=== PATIENT | male | born 1955 | race Caucasian/White ===

== ENCOUNTER 2020-02-19 08:57 | Emergency (ER) | payer OTHER ==
[2020-02-19 09:31] LABS: BASOPHIL 0.3 % (0-2); EOSINOPHIL 0.1 % (0-5); HCT 42.1 % (42.0-52.0); HGB 14.2 g/dl (13.2-18.0); LYMPHOCYTE 12.6 % (15-48); MCHC 33.7 g/dL (32.0-36.0); MCV 91.9 fL (78.0-100.0); MONOCYTE 4.7 % (0-12); NEUTROPHIL 79.9 % (41-80); NRBC 0; PLT 255 K/uL (150-400); RBC 4.58 M/uL (4.70-6.00); RDW 12.9 % (11.5-14.0); WBC 7.2 K/uL (4.0-10.5)
[2020-02-19 09:43] LABS: INR 1.04 (0.9-1.2); PROTHROMBIN TIME 12.9 SECONDS (11.4-13.6); PTT 25.9 SECONDS (22.2-34.7)
[2020-02-19 09:53] LABS: ALBUMIN 2.6 g/dL (3.4-5.0); ALKALINE PHOSHATASE 83 U/L (46-116); ALT 63 U/L (16-63); AST 76 U/L (15-37); BILIRUBIN - TOTAL 0.5 mg/dL (0.2-1.0); BUN 27 mg/dL (7-18); BUN/CREAT RATIO (CALC) 17.3 RATIO; C-REACTIVE PROTEIN >18.00 mg/dL (<=0.90); CHLORIDE 102 mmol/L (98-107); CO2 (BICARBONATE) 25 mmol/L (21-32); CREATININE 1.56 mg/dL (0.67-1.17); GLOBULIN (CALCULATION) 4.5 g/dL; GLUCOSE 117 mg/dL (74-106); MAGNESIUM 1.9 mg/dL (1.8-2.4); POTASSIUM 3.4 mmol/L (3.5-5.1); TOTAL PROTEIN 7.1 g/dL (6.4-8.2)
[2020-02-19 10:01] LABS: LACTIC ACID 1.8 mmol/L (0.4-1.9)
[2020-02-19 10:04] LABS: PRO-BNP 352 pg/mL (<125)
== END 2020-02-19 19:30 | disposition other institution (70) ==
LOC: FER 08:57
PROVIDERS: Emergency Medicine
DX: U07.1 COVID-19 (principal); J12.82 Pneumonia due to coronavirus disease 2019; J96.01 Acute respiratory failure with hypoxia; I10 Essential (primary) hypertension
CPT/HCPCS: 36415; 36600; 71045; 71275; 80053; 82803; 83605; 83735; 83880; 84145; 84484; 85025; 85610; 85730; 86140; 87040; 93005; J1100; J7030